=== PATIENT | female | born 1955 | race Caucasian/White ===

== ENCOUNTER → 2020-08-04 13:21 | Outpatient (CLI) | payer MEDICARE, SELFPAY ==
--- NOTE | ~2020-08-04 | MM_ITS ---
EXAMINATION: MM screening rae BI w spike HISTORY: Screening mammogram TECHNIQUE: Craniocaudal and mediolateral oblique 3-D tomosynthesis images were obtained and synthetic 2-D images were generated. CAD analysis was submitted and interpreted. COMPARISON: 10/10/2018 diagnostic left digital mammogram 08/23/2018, 08/19/2016 bilateral digital screening mammogram examinations BREAST PARENCHYMAL COMPOSITION: There are scattered areas of fibroglandular density. FINDINGS: Benign dense calcification in the upper outer left breast. This is stable since 08/27/2018. There is no evidence of suspicious mass, calcification, or architectural distortion to suggest malig kathy in either breast. There has been no suspicious interval change. IMPRESSION: 1. No mammographic evidence of malignancy. 2. Recommend routine screening mammography in one year. BI-RADS Category 2: Benign finding(s). Reviewed, dictated and finalized at location A. ATOR MECHANIC
== END ==
PROVIDERS: PCP Internal Medicine; Visit Provider Internal Medicine
DX: Z12.31 Encounter for screening mammogram for malignant neoplasm of breast (principal)
CPT/HCPCS: 77063; 77067

== ENCOUNTER → 2020-12-24 10:28 | Outpatient (CLI) | payer MEDICARE, SELFPAY ==
--- NOTE | ~2020-12-24 | XR_ITS ---
EXAMINATION: XR lumbar spine 2-3V DATE: 12/24/2020 12:06 INDICATION: Low back pain TECHNIQUE: Anteroposterior and lateral views of the lumbar spine, and cone-down lateral view of the l umbosacral junction were obtained. COMPARISON: None. FINDINGS: There is mild lumbar levocurvature. Bone alignment is normal. There is no fracture. The mar tebral body heights are maintained. The intervertebral disc spaces are normal. There is mild facet os teoarthritis at L5-S1. Calcifications in the left mid abdomen likely reflect left nephrolithiasis. IMPRESSION: 1. Mild lumbar spondylosis without acute findings. Reviewed, dictated and finalized at location B.
--- NOTE | ~2020-12-24 | XR_ITS ---
EXAMINATION: XR chest 2V, XR sternum min 2V EXAM DATE: 12/24/2020 12:06 INDICATION: Anterior chest pain. TECHNIQUE: Frontal and lateral projections of the chest obtained and reviewed. Lateral and oblique pr ojections of the sternum. Comparison is made to prior examination from 07/16/2010. FINDINGS: There is mild to moderate compression fracture of a lower level, probably T9 without acute fracture line identified. This is new compared to the chest x-ray in 2010. The sternum is unremarkabl e. The lungs are hyperinflated which can be seen with chronic obstructive pulmonary disease (a clinic al diagnosis of functional impairment), but is not diagnostic of it. Left basilar granuloma. No confl uent consolidation, pneumothorax or pleural effusion suspected. Cardiomediastinal silhouette is elena l. IMPRESSION: 1. Chronic hyperinflation. 2. Mild to moderate T9 compression without findings to suggest this is acute. 3. Unremarkable sternum. Reviewed, dictated and finalized at location A. IMPRESSION: 1. Chronic hyperinflation. 2. Mild to moderate T9 compression without findings to suggest this is acute. 3. Unremarkable sternum.
== END ==
PROVIDERS: PCP Internal Medicine; Visit Provider Internal Medicine
DX: R07.89 Other chest pain (principal); M54.9 Dorsalgia, unspecified; M47.896 Other spondylosis, lumbar region; R91.8 Other nonspecific abnormal finding of lung field
CPT/HCPCS: 71046; 71120; 72100

== ENCOUNTER 2021-04-20 09:00 | Outpatient (CLI) | payer MEDICARE, SELFPAY ==
--- NOTE | ~2021-04-20 | XR_ITS ---
EXAMINATION: XR chest 2V DATE: 04/20/2021 09:48 INDICATION: Chest pain and shortness of breath TECHNIQUE: Frontal and lateral views of the chest are obtained COMPARISON: 12/24/2020 FINDINGS: The lungs are free of acute opacities. There is no pleural effusion or pneumothorax. The ca rdiomediastinal silhouette is normal. There is a chronic and unchanged compression fracture in the lo wer thoracic spine. IMPRESSION: 1. No acute cardiopulmonary abnormality. Reviewed, dictated and finalized at location B.
--- NOTE | ~2021-04-20 | CT_ITS ---
EXAMINATION: CTA chest PE protocol DATE: 04/20/2021 10:08 INDICATION: Shortness of breath TECHNIQUE: Computed tomography angiography (CTA) of the chest was performed with 100 mL Omnipaque-350 intravenous contrast timed to evaluate the pulmonary arteries. Coronal maximum intensity projection 3D-reconstructions were created by the technologist. Automated exposure control and iterative reconst ruction technique were employed. Exam dose: 153.40 mGy-cm total exam DLP. COMPARISON: 04/20/2021 PA and lateral chest FINDINGS: There is diagnostic contrast enhancement of the pulmonary arteries and no evidence of pulmo nary embolism. No hilar or mediastinal mass lesion or lymphadenopathy. No thoracic aortic aneurysm or dissection. Normal heart size. No pericardial or pleural effusion. There is prominent discoid atelectasis or scarring in the lower lobes. Mild bilateral apical scarring . No pulmonary consolidation is noted. There is moderate anterior wedge compression fracture deformity of T9. IMPRESSION: No evidence of pulmonary embolism Discoid atelectasis and/or scarring in the lower lobes Reviewed, dictated and finalized at Location A. Reviewed, dictated and finalized at location A.
[2021-04-20 09:45] LABS: Basophils Percent Auto 0.7 % (0.2-1.2); Eosinophils Absolute Auto 0.1 K/mm3 (0-0.3); Eosinophils Percent Auto 1.8 % (0-4.4); Hematocrit 40.8 % (37.0-47.0); Hemoglobin 13.1 g/dL (12.0-15.0); Immature Granulocyte Absolute 0.01 K/mm3 (0.00-0.031); Immature Granulocyte Percent A 0.2 % (0-0.5); Lymphocytes Absolute Auto 2.24 K/mm3 (0.9-3.2); Lymphocytes Percent Auto 39.7 % (18.3-44.2); Mean Corpuscular HGB Conc 32.1 g/dl (32-36); Mean Corpuscular Hemoglobin 29.6 pg (26-34); Mean Corpuscular Volume 92.3 fl (80-100); Mean Platelet Volume 9.8 fl (7.4-10.4); Monocytes Absolute Auto 0.5 K/mm3 (0.1-0.6); Neutrophils Absolute Auto 2.7 K/mm3 (1.3-6.7); Neutrophils Percent Auto 48.6 % (45.5-73.1); Platelet Count Result 187 k/mm3 (150-375); Red Blood Count 4.42 M/mm3 (4.2-5.4); White Blood Count 5.6 K/mm3 (4.5-10.0)
[2021-04-20 09:53] LABS: Anion Gap 6 mmol/L (8-16); Blood Urea Nitrogen 12 mg/dL (7-17); Calcium 9.5 mg/dL (8.4-10.2); Carbon Dioxide 29 mmol/L (22-30); Chloride 103 mmol/L (98-107); Estimated Glomerular Filt Rate > 60; Glucose 90 mg/dL (65-110); Potassium 4.2 mmol/L (3.4-5.0); Sodium 138 mmol/L (137-145)
== END 2021-04-20 09:01 | disposition home or self-care (01) ==
PROVIDERS: PCP Internal Medicine; Visit Provider Internal Medicine
DX: R06.02 Shortness of breath (principal); Z79.899 Other long term (current) drug therapy; R07.89 Other chest pain; R91.8 Other nonspecific abnormal finding of lung field
CPT/HCPCS: 36415; 71046; 71275; 80048; 85025; Q9967

== ENCOUNTER 2024-06-21 14:46 | Outpatient (CLI) | payer MEDICARE, SELFPAY ==
--- NOTE | ~2024-06-21 | MM_ITS ---
EXAMINATION: MM screening rae BI w spike HISTORY: Screening TECHNIQUE: Craniocaudal and mediolateral oblique 3-D tomosynthesis images were obtained and synthetic 2-D images were generated. CAD analysis was submitted and interpreted. COMPARISON: Comparison to multiple prior studies sequentially, with oldest reviewed study dated 05/2016. BREAST PARENCHYMAL COMPOSITION: Not dense: There are scattered areas of fibroglandular density. FINDINGS: There is no evidence of suspicious mass, calcification, or architectural distortion to sugg est malignancy in either breast. There has been no suspicious interval change. IMPRESSION: 1. No mammographic evidence of malignancy. 2. Recommend routine screening mammography in one year. BI-RADS Category 1: Negative Reviewed, dictated and finalized at location B.
== END 2024-06-21 14:47 | disposition home or self-care (01) ==
LOC: MICIMG 14:48
PROVIDERS: PCP Internal Medicine; Visit Provider Obstetrics & Gynecology
DX: Z12.31 Encounter for screening mammogram for malignant neoplasm of breast (principal)
CPT/HCPCS: 77063; 77067

== ENCOUNTER 2025-03-24 06:09 | Day surgery (SDC) | payer MEDICARE, SELFPAY ==
[2024-09-26 11:23] VITALS: BMI 21.7
[2025-03-12 09:12] VITALS: BMI 22.1
--- OUTSIDE RECORDS SUMMARY | 2025-03-24 06:53 | XMS_ITS | Continuity of Care Document ---
Author Organization [facility] Address [address] [place] [address] [address] [place] [address] Phone Care Team Providers Care Senior Specialist Name Role Phone Jamir COPE, Felipe Unavailable Unavailable Allergies, Adverse Reactions, Alerts Substance Reaction Status Criticality No Known Allergies Active No Inform ation Medications Medication Instructions Dosage Effective Dates (start - stop) Status Comments Synjardy 12.5 mg-1,000 mg tablet take 1 tablet by oral route 2 times every day 1.00 tablet - No Longer Active Vitamin D3 400 unit capsule - No Longer Active rosuvastatin 40 mg tablet take 1 tablet by oral route every day 40 MG - No Longer Active multivitamin tablet - No Longer Active Tresiba FlexTouch U-100 insulin 100 unit/mL (3 mL) subcutaneous pen inject by subcutaneous route as per insulin protocol 0. - No Longer Active losartan 50 mg tablet take 1 tablet by oral route every day 50 MG - No Longer Active Humalog KwikPen U-200 Insulin 200 unit/mL (3 mL) subcutaneous inject by subcutaneous route per prescriber's instructions. Insulin dosing requires individualization. 0. - No Longer Active Procedures Procedure Date EYE EXAM [facility]ABLISHED [facility] EYE EXAM [facility]ABLISHED [facility] OFFICE/OUTPATIENT VISIT, NEW Medical Records Advance Directives Directive Yes / No Effective Date File Name No Information Encounters Encounter Description Practice Location Reason(s) For Visit Diagnoses Date Provider Providers Copied on Encounter [facility], [address] [facility] [address], [place], [place], [id number], [place] tel:[phone] OPH CONSULT NISSA LEI blurry (chief complaint) Age-related nuclear cataract, bilateralTear film insufficiency of bilateral lacrimal glands 9 Jamir Wang. [address] [place] [address], [address], [place], [address], [place]. tel:[phone] Referring Provider: Felipe Renner, [address] [place] [address] [address], [place], [address]. tel:[phone] [facility], [address] [place] [address], [id number], [place] tel:[phone] [facility] [address] No Information 7 Jamir Wang. [address] [place] [address], [place] [address], [place], [address], [place]. tel:[phone] Referring Provider: Felipe Renner, [address] [place] [address], [place], [address]. tel:[phone] OFFICE/OUTPA TIENT VISIT, [facility], [address] [place] [address], [place], [place], [id number], [place] tel:[phone] [facility] [address] No Information 5 Jamir Wang. [address] [place] [address], [place] [address], [place], [address], [place]. tel:[phone] Referring Provider: Felipe Renner, [address] [place] [address], [place], [address]. tel:[phone] [facility], [address] [place] [address], [place], [place], [id number], [place] tel:[phone] OPH CONSULT NISSA LEI No Information 3 Jamir Wang. [address] [place] [address], [place] [address], [place], [address], [place]. tel:[phone] Referring Provider: Felipe Renner, [address] [place] [address] [address], [place], [address]. tel:[phone] Family History Family Member Type Diagnosis Age At Onset Father Problem (finding) degenerative disorder o f macula Payers Payer name Insurance type Covered green party ID Authoranand pierson(s) No Information Social History Type Description Quantity Date Captured Comments Alcohol Use Details Caffeine Use Details Unknown Tobacco Use Status Current non-smoker 19 Smoking Status Never smoker Non-Smoking Tobacco Use Details : No Details Available : No Details Available Sex Female Chief Complaint And Reason For Visit From encounter dated '02/05/2019 13:30'. blurry (chief complaint). Description: The 63 year old female presents for evaluation of blurry in the right eye and left eye. It started about 6 month(s) ago. It affects distance vision. The symptomis occasional. Pt reports having trouble seeing road signs. Reason For Referral Reason For Referral No Information History Of Present Illness Encounter Date Complaint History Of Prese nt Illness blurry The 63 year old female presents for evaluation of blurry in the right eye and left eye. It started about 6 month(s) ago. It affects distance vision. The symptom is occasional. Pt reports having trouble seeing road signs. Functional Status Date Functional Assessmen t No Information Instructions Date Instruction Additional Infor matnahed RTO 1-2 yr Complete Exam with BA S Related to Tear film insufficiency of bilateral lacrimal glands Impression/Plan Related to Tear film insufficiency of bilateral lacrimal glands Impression/Plan Related to Age-r elated nuclear cataract, bilateral Assessments Type Assessment Date assessment Age-related nuclear cataract, bi lateral assessment Tear film insufficiency of bilat eral lacrimal glands impression Tear film insufficiency of bilat eral lacrimal glands: H04.123 impression Age-related nuclear cataract, bi lateral: H25.13 Patient Care Teams Name Effective Dates (start - stop) Status Members No Information
--- OUTSIDE RECORDS SUMMARY | 2025-03-24 06:53 | XMS_ITS | Data Portability ---
Author Organization [facility] Address [address] [facility] [address] [place] [address] Care Team Providers Care Loading Unit Operator Seating Name Role Phone EDMARARTIE Nath Referring Provider [phone] Assessment No assessment recorded. Plan of Treatment Reminders Order Date Submit Date Provider Last Modified By Organization Details Last Modified Time Details Appointments None record ed. Lab None record ed. Referral None record ed. Procedures None record ed. Surgeries None record ed. Imaging XR, foot 018 12/21/19 18 NICOLÁS Not available 8 13:54:47 Medication Orders None record ed. Patient TargetsNo targets recorded. Patient Instructions Encounter Date Encounter Id Patient Instructions Last Modified By Organization Details Last Modified Time 12/20/2017 [id number] hammer toe: care instructions ssollecito Not available 12/20/2017 15:59:28 metatarsalgia: care instructions vsollecito Not available 12/20/2017 18:13:50 the initial trauma sustained with the patient wearing the high-heeled shoes on hard surfaces for prolonged period of time more than likely initiated the tendinitis there is a localized swelling in this region.a metatarsal pad which is removable was given to the patient, . She may wear both of these with the lower profile insert. I do not want her to wear the good feet orthotic for her previous orthotic which is too rigid and does not provide for foot support. Hopefully by aries taping the second and third toes (coban was dispensed), and the use of a formal orthotic, her symptoms will be alleviated. She does have some GI issues and does not like taking nonsteroidal anti-inflammator y agents. I do recommend she continue the use of a analgesic compound as well as massage. She is referred for physical therapy for ultrasound and other modalities to decrease the inflammation and provide flexibility. She will return to the office in 3 weeks if symptoms persist. She also will have x-rays obtained. opal Not available 12/20/2017 18:13:12 04/05/2018 [id number] hammer toe: care instructions myaecito Not available 04/05/2018 16:49:12 metatarsalgia: care instructions [facility] Not available 04/05/2018 16:49:12 treatment options were discussed with the patient. Cortisone injection could be considered as well as amnio fixed to modulate the inflammation. We will try continuing physical therapy using 40 tape and arnica as well as a new metatarsal pad to provide offloading, in combination with a boot cast to fully offload. 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 We will try this for at least 3 weeks. She does have a few horse shows coming up and then would like to consider injection if necessary opal Not available 04/05/2018 16:48:09 Reason for Referral None Reported. Results Created Date Observation Date Name Description Value Unit Range Abnormal Flag Note LastModifiedBy Organization Detail LastModifiedTime 12/22/19 18 12/20/2017 XR, foot No observ ation record ed. [facility] [address], [place], [address], 12/25/2017 19:24:31 Result Notes None recorded. Procedures Surgical History Date Name Laterality Status Provider Name and Address Organization Details Recorded Time Vascular Surgery completed [facility] 12/20/2017 15:54:13 Other completed [facility] 12/20/2017 15:54:46 Imaging Results None recorded. Procedure Notes None recorded. Medical Equipment None Reported. Allergies No known drug allergies Medications Name Sig Start Date Stop Date Status Note LastModified by Organization Details LastModified Time azithromycin 250 mg tablet 2017 completed Not Available Not Available Not Available calcium active Not Available Not Avail able Not Available multivitamin active Not Available Not Available Not Available Vitals Date Recorded Body height Body mass index (BMI) Body weight Heart rate Systolic And Diastolic Provider Name and Address Organization Details Last Updated DateTime 12/20/2017 172.72 cm 20.2 kg/m2 58595.79 g 105 /min 104/61 mm[Hg] Amber Ortega [facility] 15:50:10 Date Recorded Body height Body mass index (BMI) Body weight Heart rate Systolic And Diastolic Provider Name and Address Organization Details Last Updated DateTime 04/05/2018 172.72 cm 20.2 kg/m2 89648.79 g 96 /min 108/60 mm[Hg] Amber Ortega [facility] 16:06:16 Social History Question Answer Notes LastModified by Organizat ion Details LastModified Time Tobacco Smoking Status Never Smoker Amber [facility] 12/20/2017 15:52:08 How Much Tobacco Do You Chew? None Information not available 12/20/2017 Which Illicit Or Recreational Drugs Have You Used? 0 Information not available 12/20/2017 Education 12 Information no t available 12/20/2017 Live Alone Or With Others? With Others Information not available 12/20/2017 Marital Status Informatio n not available 12/20/2017 What Was The Date Of Your Most Recent Tobacco Screening? 04/05/2018 Information not available 04/03/2019 How Many Children Do You Have? 3 Information not available 12/20/2017 How Much Tobacco Do You Smoke? No Information not available 12/20/2017 How Many Years Have You Smoked Tobacco? 0 Information not available 12/20/2017 Sex: Unknown Functional Status Question Answer Note LastModified by Organization D etails LastModified Time What is your level of alcohol consumption? Heavy Information not available 12/20/2017 Are you currently employed? Yes Information not available 12/20/2017 Mental Status None recorded. Family History Relationship Description Onset Age of this Age Resolved Age Notes LastModified by Organization Details LastModified Time Father Heart disease ssollecito Not available 12/20 15:51:44 Mother Malignant neoplastic disease ssollecito Not available 12/20 15:51:53 Medical History Condition Response HIV or AIDS N Arythmia N Gout N parkinsons N hearing loss N Blood Clots N Depression N duodenal ulcers N Congestive Heart Failure N pancreatitis N Alcoholism N annuerism N Anxiety Disorder N sleep apnea N Cancer N Melanoma N Stroke N Leg or Foot Ulcers N Hypercholesterolemia N tia N Rheumatoid Arthritis N Fibromyalgia N Migraines N emphysema N Lyme's Disease N Keloid N Bleeding Disorder N Tuberculosis N fracture N Asthma N Peripheral Vascular Disease N hormone imbalance N GERD/Reflux N Hepatitis N Neuropathy N lupus N hernia N Global N Lung Disease N Pacemaker N Last Seen by PCP N heart murmur N Liver Disease N Osteoarthritis N Thyroid Problems N Broken bones N Anemia N Dermatitis N Heart Attack ([place]) N Mental Illness N Stomach Ulcers N Diabetes N Seizures/Epilepsy N Kidney Failure N hypothyroid N Diverticulitis N Dementia N psoriasis N skin cancer N Eye Disorder N Heart Disease N Hypertension N Osteoporosis N Gynecological HistoryNo gynecological history recorded. 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 4.8XXA [id number] Nav Ortega [facility]PM [facility] [address] [address] [place] [address] 04/05/2018 15:59:22 04/05/2018 16:43:05 Hammer toe 995178876 M20.42 Metatarsalgia 57429556 M 77.42 Neurapraxia 009605327 T1 4.8XXA Health Concerns Section Related Observation LastModified by Organization Detai ls LastModified Time None Recorded Concern Status LastModified by Organization Details LastModified Time None Recorded Advance Directives Directive None Recorded Payers Insurance Date Sequence Insurance Name Policy Number Policy Forrester Covered Member ID Forrester Member ID Guarantor Name 04/02/2018 1 [place] REMY STRONG [id number] Rochelle Phan [id number] Rochelle Phan Notes Date Note Type Note Provider Name and Address Organization Details Recorded Time 8 text/html patient complains of left forefoot pain. She states approximately 8 months ago she was standing for prolonged periods of time wearing high heels at a . She developed bilateral forefoot pain. Previous treatment included [employer] where she purchased to pair of inserts. She originally went to the [facility] for plantar fascial symptoms and then was sold a pair of orthotics which she has not been able to wear. 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 Nav Ortega DPM [address] [facility] [address], [place], [address], [employer] 12/20/2017 18:17:44 8 text/html patient is seen for follow-up of painful second and third metatarsophalangeal joint pain left foot. She has been doing physical therapy which she feels has been helpful. There are days where she has no pain. unfortunately after only 15 minutes with her foot in a stirrup she had a flareup of pain. The aries taping does help.she denies swelling Nav Ortega [facility] [address] [facility] [address], [place], [address], [facility] 04/05/2018 16:49:14 OBGyn Episode No OBEpisode recorded.
--- NOTE | 2025-03-24 07:05 | SUR.PREOP ---
0656 pt arrived late went to hospital
[2025-03-24 07:08] VITALS: BMI 21.2
[2025-03-24 07:10] VITALS: BP 99/55; PULSE 92; RESP 16; TEMP 36.6; O2SAT 99
--- NOTE | 2025-03-24 07:13 | WPDANESEPPF ---
Anes - Initial Pre Proc Eval Procedure: Operation Date: 03/24/25 08:00 Proposed Procedures p Screening Colonoscopy - Car Huynh MD Date/Time: 03/24/25 07:13 Surgeon: Car Huynh MD Pre Op Diagnosis: Neoplasm Screening Patient Data Age: 69 Gender: F Height: 1.68 m Weight: 59.8 kg Last Vital Signs Temp 97.9 F 03/24/25 07:10 Pulse 92 03/24/25 07:10 Resp 16 03/24/25 07:10 BP 99/55 L 03/24/25 07:10 Pulse Ox 99 03/24/25 07:10 O2 Del Method Room Air 03/24/25 07:10 Allergies Allergy/AdvReac Type Severity Reaction Status Date / Time doxycycline AdvReac Mild Nausea Verified 03/24/25 07:03 Home Medications ?Medication ?Instructions ?Recorded ?Confirmed ?Type mrcsjui-irbhruvzp-cwma 333 mg-133 1 tablet PO DAILY 03/23/20 03/24/25 History mg-5 mg tablet cetirizine 10 mg tablet (Zyrtec) 5 mg PO DAILY PRN allergy symptoms 03/23/20 03/24/25 History multivitamin 1 tablet PO DAILY 03/23/20 03/24/25 History mecobalamin (vitamin B12) 1,000 1,000 mcg sublingual DAILY 07/24/23 03/24/25 History mcg disintegrating tablet,sublingual rosuvastatin 10 mg tablet 10 mg PO DIRECTED 03/12/25 03/12/25 History Patient hx anesthesia problems: none Family hx anesthesia problems: none Results Review: All pre-operative results and documents have been reviewed as part of the pre-operative evaluation. [facility] Past Medical History Medical History Abnormal finding of blood chemistry Back pain BMI 21.0-21.9, adult Borderline abnormal TFTs Breast cancer screening Chest wall pain Costochondritis, acute Encounter for Medicare annual wellness exam Encounter for routine adult health examination without abnormal findings Encounter to establish care History of shingles Hx of compression fracture of spine Hyperlipidemia Inclusion cyst of skin of shoulder On detention drug therapy Osteopenia Post herpetic neuralgia Shingles Shortness of breath Sternal pain Varicose veins of both lower extremities Vitamin D deficiency Family History Family History Father Carcinoma of colon Now Mother Carcinoma of colon Hx of- with Colostomy Social History Social History Smoking status: Never smoker Second hand tobacco smoke exposure: No Alcohol intake: current Lack of Transportation: No Lack of Food: Never True Current Housing: I Have Housing Concerned About Future Housing: No Difficulty Paying Gas/Electric Bills: No Difficulty Paying for Meds: No Currently Unemployed: No Education: High School Diploma/GED Difficulty w/ Childcare or Family Care: No Living arrangements: with family Gender identity (if verbalized by the patient): Female Anes - Eval Final PreProcedure Day of Procedure 03/24/25 07:13 Heart: regular rate and rhythm Lungs: clear to auscultation Airway: Mallampati scale class 1 Neurological: alert and oriented Last oral intake: >/= 8 hours ASA classification: II Anesthetic plan: proceed Anesthesia type and monitoring: monitored anesthesia care Results Review: All pre-operative results and documents have been reviewed as part of the pre-operative evaluation. Informed Consent: The patient's anesthetic plan and its attendant risks and benefits were discussed with the patient/family/POA. Questions were solicited and answers provided to the satisfaction of the patient/family/POA.
[2025-03-24] MEDS: LACTATED RINGERS 1,000 ML 150 ML IV CONT (07:24)
--- NOTE | 2025-03-24 07:55 | PM.IMHP ---
H&P: HPI History of Present Illness Date/Time: 03/24/25 07:55 Chief Complaint: Family history of colorectal cancer Narrative: This patient has family history of colorectal cancer. Both her parents have had colorectal cancer. Her last colonoscopy was 10 years ago. Review of Systems Review of Systems: All systems reviewed & are unremarkable except as noted in HPI and below PMFSH Past Medical History Medical History Abnormal finding of blood chemistry Back pain BMI 21.0-21.9, adult Borderline abnormal TFTs Breast cancer screening Chest wall pain Costochondritis, acute Encounter for Medicare annual wellness exam Encounter for routine adult health examination without abnormal findings Encounter to establish care History of shingles Hx of compression fracture of spine Hyperlipidemia Inclusion cyst of skin of shoulder On skilled nursing drug therapy Osteopenia Post herpetic neuralgia Shingles Shortness of breath Sternal pain Varicose veins of both lower extremities Vitamin D deficiency Family History Family History Father Carcinoma of colon Now Mother Carcinoma of colon Hx of- with Colostomy Social History Social History Smoking status: Never smoker Second hand tobacco smoke exposure: No Alcohol intake: current Lack of Transportation: No Lack of Food: Never True Current Housing: I Have Housing Concerned About Future Housing: No Difficulty Paying Gas/Electric Bills: No Difficulty Paying for Meds: No Currently Unemployed: No Education: High School Diploma/GED Difficulty w/ Childcare or Family Care: No Living arrangements: with family Gender identity (if verbalized by the patient): Female Meds Home Medications and Allergies Home Medications ?Medication ?Instructions ?Recorded ?Confirmed ?Type [id number] 333 mg-133 1 tablet PO DAILY 03/23/20 03/24/25 History mg-5 mg tablet cetirizine 10 mg tablet (Zyrtec) 5 mg PO DAILY PRN allergy symptoms 03/23/20 03/24/25 History multivitamin 1 tablet PO DAILY 03/23/20 03/24/25 History mecobalamin (vitamin B12) 1,000 1,000 mcg sublingual DAILY 07/24/23 03/24/25 History mcg disintegrating tablet,sublingual rosuvastatin 10 mg tablet 10 mg PO DIRECTED 03/12/25 03/12/25 History Allergies Allergy/AdvReac Type Severity Reaction Status Date / Time doxycycline AdvReac Mild Nausea Verified 03/24/25 07:03 Vital Signs Vital Signs - 24 hr 03/24/25 07:10 Temperature 97.9 F Pulse Rate 92 Respiratory Rate 16 Blood Pressure 99/55 L Pulse Oximetry 99 Oxygen Delivery Room Air Exam Const: General: cooperative and healthy appearing Resp: Effort & Inspection: normal respiratory effort and able to speak in complete sentences Auscultation: clear to auscultation bilaterally Cardio: Rate: regular rate Rhythm: regular rhythm GI: Inspection: normal to inspection GI Palp: No No hepatosplenomegaly present Auscultation: normal bowel sounds Rectal Exam: deferred Skin: General skin exam: normal color Psych: Appearance: grossly normal Mental Status: mental status grossly normal Assessment and Plan Assessment and plan (1) Family history of colorectal cancer: Code(s): Z80.0 - Family history of malignant neoplasm of digestive organs Status: Acute Assessment and Plan: The patient is deemed a good candidate for the procedure. Consent signed. Will proceed.
--- NOTE | 2025-03-24 08:10 | WPDANESPN ---
Anes - Prog Note Post-Op Date/Time: 03/24/25 08:10 Vital Signs: Last Vital Signs Temp 97.9 F 03/24/25 07:10 Pulse 92 03/24/25 07:10 Resp 16 03/24/25 07:10 BP 99/55 L 03/24/25 07:10 Pulse Ox 99 03/24/25 07:10 O2 Del Method Room Air 03/24/25 07:10 Pain Score (VAS): no Patient Feedback: Patient satisfied with anesthetic care.
[2025-03-24 08:23] VITALS: BP 102/56; PULSE 79; RESP 15; O2SAT 100
[2025-03-24 08:33] VITALS: BP 111/66; PULSE 66; RESP 16; O2SAT 100
[2025-03-24 08:43] VITALS: BP 113/68; PULSE 72; RESP 16; O2SAT 100
== END 2025-03-24 08:51 | disposition home or self-care (01) ==
PROVIDERS: PCP Internal Medicine; Visit Provider Internal Medicine Gastroenterology
PROC: 0DJD8ZZ Inspection of Lower Intestinal Tract, Via Natural or Artificial Opening Endoscopic (ICD-10-PCS; CPT 45378; principal; 2025-03-24 08:00)
DX: Z12.11 Encounter for screening for malignant neoplasm of colon (principal); K57.30 Diverticulosis of large intestine without perforation or abscess without bleeding; Z80.0 Family history of malignant neoplasm of digestive organs
CPT/HCPCS: G0105